=== PATIENT | female | born 1955 | race Hispanic/Latino ===

== ENCOUNTER → 2019-07-03 | Outpatient (CLI) | payer OTHER | END | disposition home or self-care (01) | LOC: LAB 09:41 | PROVIDERS: ATTEND Urology | DX: R31.29 Other microscopic hematuria (principal) | CPT/HCPCS: 36415; 80048; 85025 ==

== ENCOUNTER → 2019-07-08 | Outpatient (CLI) | payer OTHER ==
[2019-07-03 13:00] LABS: BASOPHILS % (AUTO) 0.7 % (0.0-5.0); EOSINOPHILS % (AUTO) 3.9 % (0.0-8.0); HEMATOCRIT 38.6 % (36-48); LYMPHOCYTES % (AUTO) 38.7 % (21.0-51.0); MEAN CORPUSCULAR HEMOGLOBIN 31.9 pg (27.0-33.0); MEAN CORPUSCULAR HGB CONC 33.9 g/dL (32.0-36.0); MEAN CORPUSCULAR VOLUME 94.3 fL (79-99); MONOCYTES % (AUTO) 6.9 % (3.0-13.0); NEUTROPHILS % (AUTO) 49.8 % (40.0-77.0); PLATELET COUNT (AUTO) 225 K/uL (130-400); RED BLOOD CELL COUNT(AUTO) 4.09 MIL/uL (4.00-5.50); RED CELL DISTRIBUTION WIDTH 13.2 % (11.0-15.5); WHITE BLOOD COUNT (AUTO) 6.4 K/uL (4.8-10.8)
[2019-07-03 13:14] LABS: CREATININE 0.7 mg/dL (0.5-1.5); POTASSIUM 3.8 mmol/L (3.5-5.1)
[~2019-07-08] MED LIST: IOHEXOL-350 75 ML VIAL IV ONE
== END | disposition home or self-care (01) ==
LOC: RAH 08:26
PROVIDERS: ATTEND Urology
DX: R31.29 Other microscopic hematuria (principal)
CPT/HCPCS: 74178; Q9967; 36415; 80048; 85025

== ENCOUNTER 2020-05-23 12:02 | Observation (INO) | payer OTHER ==
[2020-05-20 10:01] LABS: BASOPHILS % (AUTO) 0.5 % (0.0-5.0); HEMATOCRIT 38.8 % (36-48); LYMPHOCYTES % (AUTO) 26.5 % (21.0-51.0); MEAN CORPUSCULAR HEMOGLOBIN 31.1 pg (27.0-33.0); MEAN CORPUSCULAR HGB CONC 32.7 g/dL (32.0-36.0); MEAN CORPUSCULAR VOLUME 94.9 fL (79-99); MONOCYTES % (AUTO) 7.8 % (3.0-13.0); NEUTROPHILS % (AUTO) 61.6 % (40.0-77.0); PLATELET COUNT (AUTO) 238 K/uL (130-400); RED BLOOD CELL COUNT(AUTO) 4.09 MIL/uL (4.00-5.50); RED CELL DISTRIBUTION WIDTH 12.2 % (11.0-15.5); WHITE BLOOD COUNT (AUTO) 9.3 K/uL (4.8-10.8)
[2020-05-20 10:09] LABS: CREATININE 0.7 mg/dL (0.5-1.5); POTASSIUM 3.9 mmol/L (3.5-5.1)
[2020-05-20 11:06] VITALS: BP 173/74
[2020-05-23] VITALS (22 sets, daily range): BP systolic 104–152; BP diastolic 53–79
[~2020-05-23] VITALS: Ht 160 cm; Wt 71.9 kg
[2020-05-23] MEDS: CEFAZOLIN SODIUM 1 GM VIAL IVP SCH ×3 (05:00→23:14)
[~2020-05-23 12:02] MED LIST changes: +ACET1TAB25 PO; +CAND8TAB4 PO; +IBUP-2070 PO; -IOHEXOL-350 75 ML VIAL IV ONE
[2020-05-23] MEDS ORDERED: LACTATED RINGERS 1000ML 1,000 ML IV ONE (12:55)
--- NOTE | 2020-05-23 13:07 | NUR ---
SKIN RIGHT WRIST WITH POSTERIOR SPLINT IN PLACE. RIGHT HAND FINGERS SWOLLEN AND PURLISH IN COLOR , PT ABLE TO WIGGLE FINGERS TO RIGHT HAND, SLIGHT REDNESS TO RIGHT ARM UNDERNEATH WRAP, NO SKIN BREAKDOWN JUST SLIGHT REDNESS WILL BE INFORMED
--- NOTE | 2020-05-23 13:38 | NUR ---
REDNESS POSTERIOR SPLINT REMOVED FROM RIGHT WRIST DUE TO REDNESS NOTED TO SITE PER DR. MEZA ORDERS . PT TOLERATED WELL.
[2020-05-23] MEDS ORDERED: MIDAZOLAM HCL 1 MG/ML 2ML VIAL ONE (17:33)
[2020-05-23] MEDS ORDERED: LIDOCAINE PF 2% 5ML ABBOJECT ONE (17:33)
[2020-05-23] MEDS ORDERED: PROPOFOL 10 MG/ML 20ML VIAL IV ONE (17:33)
[2020-05-23] MEDS ORDERED: DEXAMETHASONE SOD PHOSPHATE 10MG/ML 1ML VIAL ONE (17:33)
[2020-05-23] MEDS ORDERED: ONDANSETRON HCL 4 MG/2 ML VIAL ONE (17:33)
[2020-05-23] MEDS ORDERED: ROCURONIUM 10MG/1ML SYR 10 MG/ML ML ONE (17:34)
[2020-05-23] MEDS ORDERED: FENTANYL CITRATE PF 50 MCG/1 ML 2ML VIAL ONE (17:34)
[2020-05-23] MEDS ORDERED: ROPIVACAINE 0.5% 5MG/ML 30ML IJ ONE (17:46)
[2020-05-23] MEDS ORDERED: EPHEDRINE SULFATE 50 MG/ML AMPULE ONE (17:57)
[2020-05-23] MEDS ORDERED: CEFAZOLIN SODIUM 1 GM VIAL ONE (18:05)
[2020-05-23] MEDS ORDERED: GLYCOPYRROLATE 1 MG/5 ML SYRINGE ONE (19:55)
[2020-05-23] MEDS ORDERED: NEOSTIGMINE 5MG/5ML SYR IV ONE (19:56)
[2020-05-23] MEDS ORDERED: DIPHENHYDRAMINE HCL 25 MG CAPSULE PO PRN (20:15)
[2020-05-23] MEDS ORDERED: TEMAZEPAM 15 MG CAPSULE PO PRN (20:15)
[2020-05-23] MEDS ORDERED: POTASSIUM CHLORIDE 20MEQ/100ML 100 ML IV PRN (20:15)
[2020-05-23] MEDS: ACETAMINOPHEN EXTRA STRENGTH 500 MG TABLET PO SCH (20:15)
[2020-05-23] MEDS ORDERED: SODIUM CHLORIDE 0.9% 1000ML 1,000 ML IV SCH (20:15)
[2020-05-23] MEDS ORDERED: POTASSIUM CHLORIDE 20 MEQ ERTAB PO PRN (20:15)
[2020-05-23] MEDS ORDERED: HYDROCODONE/ACETAMINOPHEN 5/325 MG TAB PO PRN ×2 (20:15)
[2020-05-23] MEDS ORDERED: KETOROLAC TROMETHAMINE 15MG/ML IV PRN (20:15)
[2020-05-23] MEDS ORDERED: PROMETHAZINE HCL 25 MG/ML 1ML AMPULE IM PRN (20:15)
[2020-05-23] MEDS ORDERED: POTASSIUM CHLORIDE 10% ELIXIR 20 MEQ/15 ML UDCUP PO PRN (20:15)
[2020-05-23] MEDS ORDERED: LIDOCAINE HCL-MPF 1% 2ML VIAL IV PRN (20:15)
[2020-05-23] MEDS ORDERED: MORPHINE SULFATE 2 MG/ML 1ML SYG IVP PRN (21:30)
[2020-05-23] MEDS ORDERED: IBUPROFEN 600 MG TABLET PO SCH (22:45)
[2020-05-23] MEDS ORDERED: ACETAMINOPHEN-CODEINE 300/30MG TAB PO PRN (22:45)
[2020-05-24] MEDS: ACETAMINOPHEN EXTRA STRENGTH 500 MG TABLET PO SCH ×2 (03:15→12:06)
[2020-05-24 04:00] VITALS: BP 105/66
[2020-05-24] MEDS: CEFAZOLIN SODIUM 1 GM VIAL IVP SCH (05:16)
[2020-05-24 08:00] VITALS: BP 117/76
[2020-05-24] MEDS ORDERED: HYDR-4060 PO (08:12)
[2020-05-24] MEDS ORDERED: CANDESARTAN CILEXETIL 16 MG TAB PO SCH (09:00)
--- NOTE | 2020-05-24 10:10 | NUR ---
CHART REVIEWED. SCHEDULED OPP , NO TRIGGERS OR CONCERNS VOICED BY PATIENT /RN, WILL DEFER DETAILED CM ASSESSMENT AT THIS TIME Addendum: 05/24/20 at 1011 by TABITHA ROSALES RN CM Amended: Links added.
[2020-05-24 11:00] VITALS: BP 116/65
--- NOTE | 2020-05-24 12:46 | NUR ---
1941 patient's spouse signed SONG Letter, I faxed SONG Letter to [phone] and placed in chart under consent tab.
--- NOTE | 2020-05-24 12:57 | NUR ---
PATIENT DISCHARGE PATIENT DISCHARGE, IV DISCONTINUED, CATHLON INTACT BLEEDING CONTROLLED, PATIENT TOLERATED WITHOUT INCIDENT. DISCUSSED WITH PATIENT FOLLOW UP APPOINTMENT WITH DR. MEZA AND PAIN MEDICATIONS.
[2020-05-25] MEDS ORDERED: LOSARTAN 100 MG TABLET PO SCH (09:00)
== END 2020-05-24 14:30 | disposition home or self-care (01) ==
LOC: DAH 12:02 → 3DH 12:03 → DAH 12:03
PROVIDERS: ADMIT Orthopaedic Surgery; ATTEND Orthopaedic Surgery
DX: S52.571A Other intraarticular fracture of lower end of right radius, initial encounter for closed fracture (principal); Z20.828 Contact with and (suspected) exposure to other viral communicable diseases; I10 Essential (primary) hypertension; Z90.710 Acquired absence of both cervix and uterus; W01.198A Fall on same level from slipping, tripping and stumbling with subsequent striking against other object, initial encounter; Y93.89 Activity, other specified; Y92.59 Other trade areas as the place of occurrence of the external cause
CPT/HCPCS: 25608; 36415; 73110; 80048; 85025; 96361 ×2; 96374; 96375; 96376; A4215; A4221; A4222; A4223; A4565; A4600; A4649 ×5; A4657; A4663; A4930; A6223; C1713 ×7; C1776; G0378 ×13; J0690 ×4; J1100; J2001; J2250; J2405; J2704; J2710; J2795; J3010; J3490 ×2; J7030 ×2; J7120; Q4051; U0003